=== PATIENT | female | born 1965 | race Caucasian/White ===

== ENCOUNTER 2017-08-31 10:08 | Emergency (ER) | payer OTHER ==
[~2017-08-31] VITALS: Ht 160 cm; Wt 81.6 kg
[~2017-08-31 10:08] MED LIST: AEROCHAMBER1 DEV IH; ALBUTEROL2 PUFFS/17 IN; AZITHROMYCIN250 MG PO; BACTRIM DS 8001 TA1 PO; BENZONATATE100 MG PO; BUPROPION HCL75 M1 PO; FLEXERIL10 MG PO; GOOD SENSE IBU200 MG PO; MUCINEX D 600 M1 TER PO; NAPROXEN SODIU500 MG PO
--- NOTE | 2017-08-31 10:52 | Emergency Room Report ---
History of Present Illness Time Seen by MD Flores Presenting Problem in Triage Pt arrived:Walked Presenting Problem:PT ARRIVES AFTER HAVING EXPERIENCED LEFT SIDE BACK PAIN, LEFT SIDE ARM PAIN SINCE LAST NIGHT. NO SOA. 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 Y Clinical Suspician of Infection? Y Mental Status: 1 - Regular (Normal Baseline) Sepsis Risk:Low Sepsis Risk Have you (or family members/close friends) recently traveled outside the [place]? N If Yes, where/when: Have you had exposure to infectious disease within the past month? TB? Other? Specify: Comment The patient has pain in her LEFT shoulder blade area that increases with raising her LEFT arm and movement of her head. No trauma. She denies having this previously, but she had a visit to the emergency department here on 03/01/16 for LEFT shoulder pain. She had a cardiac workup at that time that was negative. She was treated with muscle relaxers and anti-inflammatories. She does not recall that visit. She denies any numbness or tingling. No chest pain or shortness of breath. ALLERGIES Coded Allergies: Penicillins (THROAT SWELLING 08/31/17) diazepam (From VALIUM) (FACIAL SWELLING 08/31/17) Home Medications Active Scripts Cyclobenzaprine Hcl (Flexeril) 5 MG PO TID PRN muscle spasm #6 TAB Prov: 03/01/16 SULFAMETHOXAZOLE W/TRIMETHOPRI (Bactrim Ds Tab) 1 TABLET PO BID #20 TAB Prov: 01/21/17 Reported Medications BUPROPION HCL (Bupropion HCl 75MG) 75 MG PO DAILY #60 History Medical History General CAD? No Angina: No [place]: No Hypertension? No Hyperlipidemia? No CHF? No DVT? No PE? No COPD? No Asthma? No Anemia? No GERD? No Gastric ulcers? No GI Bleed? No Hernia? No Thyroid Problems? Yes Hypothyroidism? No CVA? No Seizures? No Diabetes? No Renal Insuffiency? No End Stage Renal Disease? No UTI? No Stones? No GB Disease: No Nephritic Syndrome? No Asplenia? No Hepatitis? No Sickle Cell Disease? No Arthritis? No Migraines? No Cataracts? No Glaucoma? No MRSA? No HIV? No TB? No Anxiety? No Depression? No Cancer? No Immunization Hx Ped.Immunizations UTD Yes DT/Tetanus > 10 YRS Flu NOT SURE Pneumonia NEVER Surgical Hx Previous Surgery?Y C-SECTIONS R LUMPECTOMY ORAL SX L. 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 N/A Family History Family Hx Diabetes Yes CAD No Hypertension Yes Hyperlipidemia Yes Cancer No TB No Social History Smoking Hx Smoker: Current Every Day Smoker Tobacco: Yes Type Cigarettes Packs/day < 1 Pack Alcohol Alcohol: No Review of Systems All Other Systems Reviewed and Negative Constitutional denies fever Respiratory denies shortness of breath Cardiovascular denies chest pain Musculoskeletal see HPI Psychiatric/Neurological denies numbness, denies tingling, denies weakness Physical Exam Vital Signs Vital Signs Date Time Temp Pulse Resp B/P Pulse O2 O2 Flow FiO2 Ox Delivery Rate 08/31 1246 97.7 82 18 132/88 98 08/31 1242 18 08/31 1204 82 18 148/98 98 08/31 1027 97.7 83 18 153/100 98 General Appearance moderate distress (with movement) Neck non-tender, positive Spurling test. Respiratory Status No: respiratory distress. Cardiovascular normal exam, regular rate/rhythm Peripheral Pulses Pulses normal Yes scutcher tender medial to LEFT scapula Neurologic alert, no motor/sensory deficits Medical Decision Making LABS/Meds/Orders Pt receiving controlled substance in ED? Yes Fan was queried for this patient? Yes Results/Orders Laboratory Tests 08/31/17 1034: Creatine Kinase Cancelled, CK-MB (CK-2) Rel Index Cancelled, CK and CKMB Interp Cancelled, Troponin I Cancelled, WBC Cancelled, RBC Cancelled, Hgb Cancelled, Hct Cancelled, MCV Cancelled, RDW Cancelled, Plt Count Cancelled, Gran % Cancelled, Gran # Cancelled, Lymphocytes % Cancelled, Eosinophils % Cancelled, Basophils % Cancelled, Lymphocytes # Cancelled, Eosinophils # Cancelled, Basophils # Cancelled, PUBS MCHC Cancelled, MCH Cancelled Current Medication Orders Sig/Saundra Start time Last Medication Dose Route Stop Time Status Admin Oxycodone/ 0 .STK-MED ONE 08/31 1241 DC Acetaminophen PO Prednisone 0 .STK-MED ONE 08/31 1241 DC .ROUTE Oxycodone/ 1 EACH ONCE ONE 08/31 111 DC 08/31 Acetaminophen PO 08/31 111 1242 Prednisone 40 MG ONCE ONE 08/31 111 DC 08/31 PO 08/31 111 1241 Sodium Chloride 10 ML PRN PRN 08/31 1045 DCD IV 09/01 1034 Orders Procedure Date/time Status CERVICAL SPINE-2 TO 3 VIEWS 08/31 110 Active ELECTROCARDIOGRAM REQUEST 08/31 103 Active CHEST(2 VIEWS-NOT PORTABLE) 08/31 103 Active IV SALINE LOCK 08/31 103 Active 12 LEAD EKG-YUMIKO (INITIAL) 08/31 103 Active CM/EKG CM/EKG Comments EKG interpreted by Jesus Krishna MD: Rhythm: sinus Rate: 71 [place]: normal Ectopy: none Conduction: normal ST Segment Changes: none T Wave Changes: none Q Waves: none No evidence of acute ischemia or injury Prior electrocardiagrams reviewed. No change from prior tracings. XRAY/CT/US XRAY/CT/US XRAY chest, C-spine Comment X-rays interpreted by Jesus Krishna M.D.: Cervical spine: Severe degenerative disc disease with loss of disc space height and osteophyte formation at C5-C7 Chest x-ray: No infiltrate, pneumothorax, pleural effusion, or wide mediastinum. Departure Departure Disposition DC Home or Self Care(routine) Clinical Impression Primary Impression: Cervical radiculopathy Secondary Impressions: Degenerative disc disease, cervical Condition STABLE Patient Instructions DI for Cervical Radiculopathy, DI for Degenerative Disc Disease Additional Instructions Additional instructions for NECK PAIN: See your physician as soon as possible for further evaluation. Return immediately if neck pain becomes intolerable, or if fever, numbness or weakness of your arms or legs, loss of control of your bowels or bladder. Prescriptions Current Visit Scripts OXYCODONE HCL/ACETAMINOPHEN (Percocet 5-325 MG Tablet) 1 TAB PO Q6HP PRN pain #10 TAB Prednisone (Prednisone 10MG) 10 MG PO DAILY #27 TAB 6 po on days 1-2, then decrease dose by 1 pill per day until gone ED Critical Care Critical Care No at 1343
--- NOTE | 2017-08-31 10:52 | Emergency Room Report ---
History of Present Illness Time Seen by MD Flores Presenting Problem in Triage Pt arrived:Walked Presenting Problem:PT ARRIVES AFTER HAVING EXPERIENCED LEFT SIDE BACK PAIN, LEFT SIDE ARM PAIN SINCE LAST NIGHT. NO SOA. 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 Y Clinical Suspician of Infection? Y Mental Status: 1 - Regular (Normal Baseline) Sepsis Risk:Low Sepsis Risk Have you (or family members/close friends) recently traveled outside the [place]? N If Yes, where/when: Have you had exposure to infectious disease within the past month? TB? Other? Specify: Comment The patient has pain in her LEFT shoulder blade area that increases with raising her LEFT arm and movement of her head. No trauma. She denies having this previously, but she had a visit to the emergency department here on 03/01/16 for LEFT shoulder pain. She had a cardiac workup at that time that was negative. She was treated with muscle relaxers and anti-inflammatories. She does not recall that visit. She denies any numbness or tingling. No chest pain or shortness of breath. ALLERGIES Coded Allergies: Penicillins (THROAT SWELLING 08/31/17) diazepam (From VALIUM) (FACIAL SWELLING 08/31/17) Home Medications Active Scripts Cyclobenzaprine Hcl (Flexeril) 5 MG PO TID PRN muscle spasm #6 TAB Prov: 03/01/16 SULFAMETHOXAZOLE W/TRIMETHOPRI (Bactrim Ds Tab) 1 TABLET PO BID #20 TAB Prov: 01/21/17 Reported Medications BUPROPION HCL (Bupropion HCl 75MG) 75 MG PO DAILY #60 History Medical History General CAD? No Angina: No [place]: No Hypertension? No Hyperlipidemia? No CHF? No DVT? No PE? No COPD? No Asthma? No Anemia? No GERD? No Gastric ulcers? No GI Bleed? No Hernia? No Thyroid Problems? Yes Hypothyroidism? No CVA? No Seizures? No Diabetes? No Renal Insuffiency? No End Stage Renal Disease? No UTI? No Stones? No GB Disease: No Nephritic Syndrome? No Asplenia? No Hepatitis? No Sickle Cell Disease? No Arthritis? No Migraines? No Cataracts? No Glaucoma? No MRSA? No HIV? No TB? No Anxiety? No Depression? No Cancer? No Immunization Hx Ped.Immunizations UTD Yes DT/Tetanus > 10 YRS Flu NOT SURE Pneumonia NEVER Surgical Hx Previous Surgery?Y C-SECTIONS R LUMPECTOMY ORAL SX L. 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 Family History Family Hx Diabetes Yes CAD No Hypertension Yes Hyperlipidemia Yes Cancer No TB No Social History Smoking Hx Smoker: Current Every Day Smoker Tobacco: Yes Type Cigarettes Packs/day < 1 Pack Alcohol Alcohol: No Review of Systems All Other Systems Reviewed and Negative Constitutional denies fever Respiratory denies shortness of breath Cardiovascular denies chest pain Musculoskeletal see HPI Psychiatric/Neurological denies numbness, denies tingling, denies weakness Physical Exam Vital Signs Vital Signs Date Time Temp Pulse Resp B/P Pulse O2 O2 Flow FiO2 Ox Delivery Rate 08/31 1246 97.7 82 18 132/88 98 08/31 1242 18 08/31 1204 82 18 148/98 98 08/31 1027 97.7 83 18 153/100 98 General Appearance moderate distress (with movement) Neck non-tender, positive Spurling test. Respiratory Status No: respiratory distress. Cardiovascular normal exam, regular rate/rhythm Peripheral Pulses Pulses normal Yes monitor and storage bin tender medial to LEFT scapula Neurologic alert, no motor/sensory deficits Medical Decision Making LABS/Meds/Orders Pt receiving controlled substance in ED? Yes Fan was queried for this patient? Yes Results/Orders Laboratory Tests 08/31/17 1034: Creatine Kinase Cancelled, CK-MB (CK-2) Rel Index Cancelled, CK and CKMB Interp Cancelled, Troponin I Cancelled, WBC Cancelled, RBC Cancelled, Hgb Cancelled, Hct Cancelled, MCV Cancelled, RDW Cancelled, Plt Count Cancelled, Gran % Cancelled, Gran # Cancelled, Lymphocytes % Cancelled, Eosinophils % Cancelled, Basophils % Cancelled, Lymphocytes # Cancelled, Eosinophils # Cancelled, Basophils # Cancelled, PUBS MCHC Cancelled, MCH Cancelled Current Medication Orders Sig/Saundra Start time Last Medication Dose Route Stop Time Status Admin Oxycodone/ 0 .STK-MED ONE 08/31 1241 DC Acetaminophen PO Prednisone 0 .STK-MED ONE 08/31 1241 DC .ROUTE Oxycodone/ 1 EACH ONCE ONE 08/31 111 DC 08/31 Acetaminophen PO 08/31 111 1242 Prednisone 40 MG ONCE ONE 08/31 111 DC 08/31 PO 08/31 111 1241 Sodium Chloride 10 ML PRN PRN 08/31 1045 DCD IV 09/01 1034 Orders Procedure Date/time Status CERVICAL SPINE-2 TO 3 VIEWS 08/31 110 Active ELECTROCARDIOGRAM REQUEST 08/31 103 Active CHEST(2 VIEWS-NOT PORTABLE) 08/31 103 Active IV SALINE LOCK 08/31 103 Active 12 LEAD EKG-YUMIKO (INITIAL) 08/31 103 Active CM/EKG CM/EKG Comments EKG interpreted by Jesus Krishna MD: Rhythm: sinus Rate: 71 [place]: normal Ectopy: none Conduction: normal ST Segment Changes: none T Wave Changes: none Q Waves: none No evidence of acute ischemia or injury Prior electrocardiagrams reviewed. No change from prior tracings. XRAY/CT/US XRAY/CT/US XRAY chest, C-spine Comment X-rays interpreted by Jesus Krishna M.D.: Cervical spine: Severe degenerative disc disease with loss of disc space height and osteophyte formation at C5-C7 Chest x-ray: No infiltrate, pneumothorax, pleural effusion, or wide mediastinum. Departure Departure Disposition DC Home or Self Care(routine) Clinical Impression Primary Impression: Cervical radiculopathy Secondary Impressions: Degenerative disc disease, cervical Condition STABLE Patient Instructions DI for Cervical Radiculopathy, DI for Degenerative Disc Disease Additional Instructions Additional instructions for NECK PAIN: See your physician as soon as possible for further evaluation. Return immediately if neck pain becomes intolerable, or if fever, numbness or weakness of your arms or legs, loss of control of your bowels or bladder. Prescriptions Current Visit Scripts OXYCODONE HCL/ACETAMINOPHEN (Percocet 5-325 MG Tablet) 1 TAB PO Q6HP PRN pain #10 TAB Prednisone (Prednisone 10MG) 10 MG PO DAILY #27 TAB 6 po on days 1-2, then decrease dose by 1 pill per day until gone ED Critical Care Critical Care No at 1343
[2017-08-31] MEDS ORDERED: PERCOCET1 TAB PO (12:07)
[2017-08-31] MEDS ORDERED: PREDNISONE 10MG10 MG PO (12:07)
[2017-08-31 12:46] VITALS: BP 132/88
--- NOTE | 2017-08-31 13:46 | RADIOLOGY REPORT PS360 ---
CHEST(2 VIEWS-NOT PORTABLE) INDICATION: Chest and back pain COMPARISON: PA and lateral chest 03/01/2016 FINDINGS: The lung elizalde are well expanded and appear clear of infiltrate. The cardiomediastinal silhouette and vascularity are normal. The costophrenic angles are clear. The bony thorax is normal. IMPRESSION: Normal chest.
--- NOTE | 2017-08-31 13:48 | RADIOLOGY REPORT PS360 ---
CERVICAL SPINE-2 TO 3 VIEWS COMPARISON: None HISTORY: Generalized neck pain TECHNIQUE: AP and lateral views FINDINGS: There is straightening of the normal curvature suggesting muscle spasm. There is moderate disc space narrowing at the C5-6 and C6-7 levels with anterior ossific spurring. The apophyseal joints appear normal. The odontoid and prevertebral soft tissues are grossly normal. IMPRESSION: Prominent degenerative disc disease C5-6 and C6-7 along with findings of muscle spasm
--- OUTSIDE RECORDS SUMMARY | 2017-09-06 13:03 | External Medical Summary Rpt ---
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 Name Role Phone Sunny CALHOUN PCP [phone] Encounter [facility] [id number] Date(s): 08/27/16 - 09/03/16 [facility] [address] [place] [address]- [phone] Discharge Disposition: OP Self Care or Home Attending Physician: ELISA ORO DPM, DPM-POD Admitting Physician: ELISA ORO DPM, DPM-POD Referring Physician: ELISA ORO DPM, DPM-POD Reason for Visit NEOPLASM OF UNSP BEHAVIOR OF BONE, SOFT TISSUE, AND SKIN Vital Signs Most recent 1 2 3 to oldest [Reference Range]: Temperature Temporal artery Temporal artery Source scanning scanning (09/03/16 12:15 (09/03/16 7:00 PM) AM) Temperature Fahrenheit Fahrenheit Mode (09/03/16 12:15 (09/03/16 7:00 PM) AM) Temperature, 97.8 Deg F 97.9 Deg F Fahrenheit (09/03/16 12:15 (09/03/16 7:00 [96.8-99.7 PM) AM) Deg F] Clinical 36.6 Deg C Temperature, (09/03/16 12:15 C PM) Pulse Method Non-Invasive BP Device (09/03/16 7:00 AM) Heart Rate 73 bpm (09/03/16 84 bpm (09/03/16 79 bpm (09/03/16 Monitored 12:45 PM) 12:30 PM) 12:15 PM) [60-100 bpm] Respiratory 18 Breaths/Min 20 Breaths/Min Rate [14-20 (09/03/16 12:15 (09/03/16 7:00 Breaths/Min] PM) AM) Blood Arm, left upper Pressure (09/03/16 7:00 Location AM) Blood Non-Invasive BP Non-Invasive BP Pressure Device (09/03/16 Device (09/03/16 Source 12:15 PM) 7:00 AM) Blood 140/77 mmHg 128/93 mmHg 125/83 mmHg Pressure (09/03/16 12:45 (09/03/16 12:30 (09/03/16 12:15 [90-140/60-9 PM) PM) PM) 0 mmHg] Oxygen 94 % (09/03/16 94 % (09/03/16 95 % (09/03/16 Saturation 12:45 PM) 12:30 PM) 12:15 PM) [94-100 %] Oxygen Room air Room air Room air Therapy Mode (09/03/16 12:45 (09/03/16 12:30 (09/03/16 12:15 PM) PM) PM) Problem List Condition Effective Status Health Informant Dates Status Pneumonia, Active hx(Confirmed ) Allergies, Adverse Reactions, Alerts Substance Reaction Severity Status Mushrooms Active penicillin Active Valium Active Medications multivitamin Every Day, Refills: 0 Results Microbiology Reports TEST: Wound Culture STATUS: Order in Progress BODY SITE: Right Foot SOURCE: Surgical Swab COLLECTED DATE/TIME: 09/03/16 11:18 AMPRELIMINARY REPORTNo growthSTAIN REPORTNo organisms seen. Rare White Blood CellsTEST: Fungus Culture STATUS: Order in Progress BODY SITE: Right Foot SOURCE: Surgical Swab COLLECTED DATE/TIME: 09/03/16 11:17 AMSTAIN REPORTNo Fungal elements seen Immunizations No data available for this section Procedures Procedure Date Related Body Site Diagnosis lumpectomy 1986 x4 partial thyroid lobectomy1 Tubal ligation 35833 Social History Social History Response Type Smoking Status Current every day smoker; Smoking Frequency Within Last 30 Days Five or more cigarettes per day; Tobacco Use Within Last Twelve Months Cigarettes; Years of Tobacco Use 12; Packs/Tins Daily 0.5; Second Hand Smoke Exposure No; Smokeless Tobacco Use History None Assessment and Plan No data available for this section Hospital Discharge Instructions Patient EducationCrutch Use, [id number] Excision of Skin Lesions Monitored Anesthesia Care Smoking Cessation
--- OUTSIDE RECORDS SUMMARY | 2017-09-06 13:03 | External Medical Summary Rpt ---
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
--- OUTSIDE RECORDS SUMMARY | 2017-09-06 13:07 | External Medical Summary Rpt | CCD ---
Demographics Preferred Language Sudanese Marital Status Unknown Worship Affiliation Unknown Race Unknown Ethnic Group Unknown Author Author , BRYANNA GOULD Address Unknown Phone Immunization No patient found.
--- OUTSIDE RECORDS SUMMARY | 2017-09-06 13:07 | External Medical Summary Rpt | CCD ---
Demographics Preferred Language Burmese Marital Status Unknown Quaker Affiliation Unknown Race Unknown Ethnic Group Unknown Author Author , BRYANNA GOULD Address Unknown Phone Immunization No patient found.
--- OUTSIDE RECORDS SUMMARY | 2017-09-06 13:07 | External Medical Summary Rpt ---
Author Author BRYANNA Del Toro, BRYANNA Production Organization [employer]YANNA [employer] Address Unknown Phone Unavailable
== END 2017-08-31 12:46 | disposition home or self-care (01) ==
LOC: ER 10:08
DX: M50.13 Cervical disc disorder with radiculopathy, cervicothoracic region (principal); Z88.0 Allergy status to penicillin; F17.210 Nicotine dependence, cigarettes, uncomplicated